=== PATIENT | male | born 1955 | race American Indian/Alaskan Native ===

== ENCOUNTER 2018-01-03 17:35 | Emergency (ER) | payer MEDICARE, MEDICAID ==
[2018-01-03] MEDS: GI Cocktail Oral Solution 30 ML PO ONE (18:01)
[2018-01-03 18:42] VITALS: BP 119/80
[2018-01-03 19:02] LABS: CHLORIDE,CL 107 mmol/L (98-107); SODIUM,NA 139 mmol/L (136-145)
--- NOTE | 2018-01-03 19:31 | EDM.PDOC ---
ED HPI GENERAL MEDICAL PROBLEM - General Chief Complaint: Chest Pain Time Seen by Provider: 01/03/18 19:21 Source of Information: Reports: Patient, EMS, Retirement Records History Limitations: Reports: No Limitations - History of Present Illness INITIAL COMMENTS - FREE TEXT/NARRATIVE: Pt. presents to ER with complaints of epigastric pain. Pt. states that the discomfort started earlier this afternoon. He states that he is not experiencing any substernal chest pain. No shortness of breath. No weakness. Denies any hemetemesis. No melena or hematochezia. Pt. has a longstanding history of alcoholism and alcohol induced encephalopathy. Pt. was upset that he wasn't able to go to [place] today due to his tendency to abscond from staff. Pt. stated that he didn't want to be seen in ER stating "I' m out and just want to take a cab to [place]." Pt. offered no complaints. He was unwilling to rate the severity or quality of the discomfort. 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, EKG, Nitroglycerin, See EMS Report Middle Chest Pain Score (Numeric/FACES): 6 - Related Data Allergies Allergy/AdvReac Type Severity Reaction Status Date / Time mustard Allergy Vomiting Verified 01/03/18 17:56 Home Meds: Home Meds NIFEdipine [Procardia XL] 1 tab PO DAILY 01/28/16 [History] metFORMIN [Glucophage] 1 tab PO DAILY 01/28/16 [History] Aspirin 81 mg PO DAILY 08/17/17 [History] Amoxicillin/Potassium Clav [Augmentin 875-125 Tablet] 1 each PO BID 08/18/17 [ History] Ascorbic Acid 500 mg PO ASDIRECTED 08/18/17 [History] Calcium Citrate/Vitamin D2 [Calcium with Vit D Tablet] 1 each PO ASDIRECTED [History] Cholecalciferol (Vitamin D3) [Vitamin D3] 2,000 unit PO ASDIRECTED 08/18/17 [ History] Clobetasol Propionate [Temovate] 15 gm TP ASDIRECTED 08/18/17 [History] FLUoxetine [PROzac] 10 mg PO ASDIRECTED 08/18/17 [History] Folic Acid 1 mg PO DAILY 08/18/17 [History] Gabapentin [Neurontin] 300 mg PO ASDIRECTED 08/18/17 [History] Insulin Aspart [NovoLOG] 0 unit SQ ASDIRECTED 08/18/17 [History] Insulin Detemir [Levemir] 1 unit SQ ASDIRECTED 08/18/17 [History] Lisinopril 10 mg PO DAILY 08/18/17 [History] Magnesium Oxide [Magnesium] 400 mg PO DAILY 08/18/17 [History] Multivitamin [Daily Multiple Vitamin] 1 each PO DAILY 08/18/17 [History] Pantoprazole [ProTONIX] 40 mg PO ACBREAKFAST 08/18/17 [History] Silver Sulfadiazine [Silvadene 1% Cream 20 GM] 20 gm TOP DAILY 08/18/17 [History ] Thiamine HCl 100 mg PO DAILY 08/18/17 [History] amLODIPine [Norvasc] 5 mg PO DAILY 08/18/17 [History] atorvaSTATin [Lipitor] 20 mg PO ASDIRECTED 08/18/17 [History] oxyCODONE HCl [Oxycodone HCl] 5 mg PO ASDIRECTED 08/18/17 [History] traMADol HCl [Tramadol HCl ER] 100 mg PO ASDIRECTED 08/18/17 [History] traZODone HCl [Trazodone HCl] 100 mg PO ASDIRECTED 08/18/17 [History] Past Medical History Cardiovascular History: Reports: High Cholesterol, Hypertension Gastrointestinal History: Reports: Cirrhosis, Gastritis, GERD Genitourinary History: Reports: BPH, Renal Disease Musculoskeletal History: Reports: Other (See Below) Other Musculoskeletal History: muscle weakness Neurological History: Reports: TIA, Other (See Below) Other Neuro History: TBI. personality disorder Psychiatric History: Reports: Addiction Endocrine/Metabolic History: Reports: Diabetes, Type II - Past Surgical History GI Surgical History: Reports: Other (See Below) Social & Family History - Tobacco Use Smoking Status *Q: Unknown Ever Smoked Second Hand Smoke Exposure: Yes - Alcohol Use Days Per Week of Alcohol Use: 7 Number of Drinks Per Day: 10 Total Drinks Per Week: 70 - Recreational Drug Use Recreational Drug Use: No ED ROS GENERAL - Review of Systems Review Of Systems: See Below Constitutional: Reports: No Symptoms HEENT: Reports: No Symptoms Respiratory: Reports: No Symptoms Cardiovascular: Reports: No Symptoms Endocrine: Reports: No Symptoms GI/Abdominal: Reports: Other (epigastric pain) : Reports: No Symptoms Musculoskeletal: Reports: No Symptoms Skin: Reports: No Symptoms Neurological: Reports: No Symptoms Psychiatric: Reports: No Symptoms Hematologic/Lymphatic: Reports: No Symptoms Immunologic: Reports: No Symptoms (epigsatric pain) ED EXAM, GENERAL - Physical Exam Exam: See Below General Appearance: Alert, WD/WN, No Apparent Distress Eye Exam: Bilateral Eye: EOMI, Normal Fundi, Normal Inspection, PERRL Respiratory/Chest: No Respiratory Distress, Lungs Clear, Normal Breath Sounds, No Accessory Muscle Use, Chest Non-Tender Cardiovascular: Normal Peripheral Pulses, Regular Rate, Rhythm, No Edema, No Gallop, No JVD, No Murmur, No Rub Peripheral Pulses: 4+: Radial (L), Radial (R) GI/Abdominal: Normal Bowel Sounds, Soft, Non-Tender, No Organomegaly, No Distention, No Abnormal Bruit, No Mass (Male) Exam: Deferred Rectal (Males) Exam: Deferred Back Exam: Normal Inspection, Full Range of Motion, NT Extremities: Normal Inspection, Normal Range of Motion, Non-Tender, Normal Capillary Refill, No Pedal Edema Course - Vital Signs Last Recorded V/S: Last Vital Signs Temp 36.7 C 01/03/18 17:35 Pulse 78 01/03/18 17:35 Resp 16 01/03/18 17:35 BP 119/80 01/03/18 17:35 Pulse Ox 95 01/03/18 17:35 - Orders/Labs/Meds Orders: Active Orders 24 hr Category Date Time Status Chest 1V Frontal [CR] Stat Exams 01/03/18 17:52 Taken Labs: Laboratory Tests 01/03/18 01/03/18 01/03/18 Range/Units 18:19 18:19 18:19 WBC 7.2 (4.0-10.0) x10^3/uL RBC 4.66 (4.5-6.0) x10^6/uL Hgb 13.2 L (14.0-18.0) g/dL Hct 37.9 L (40.0-52.0) % MCV 81.3 (78.0-93.0) fL MCH 28.3 (26.0-32.0) pg MCHC 34.8 (32.0-36.0) g/dL RDW Coeff of Kiara 14.2 (10.0-15.0) % Plt Count 177 (130-400) x10^3/uL Neut % (Auto) 67.6 (50.0-80.0) % Lymph % (Auto) 15.5 L (25.0-50.0) % [place] % (Auto) 11.9 H (2.0-11.0) % Eos % (Auto) 4.6 H (0.0-4.0) % Baso % (Auto) 0.4 (0.2-1.2) % PT 11.0 (9.8-11.8) SEC INR 1.0 L (2.0-3.5) Sodium 139 (136-145) mmol/L Potassium 4.0 (3.5-5.1) mmol/L Chloride 107 (98-107) mmol/L Carbon Dioxide 21 (21-32) mmol/L Anion Gap 15.0 BUN 22 H (7-18) mg/dL Creatinine 0.8 (0.70-1.30) mg/dL Est Cr Clr Drug Dosing 90.25 mL/min Estimated GFR (MDRD) > 60 Glucose 116 H (74-106) mg/dL Calcium 9.0 (8.5-10.1) mg/dL Corrected Calcium 9.24 (8.5-10.1) mg/dL Total Bilirubin 0.8 (0.2-1.0) mg/dL AST 35 (15-37) U/L ALT 48 (16-63) U/L Alkaline Phosphatase 109 (46-116) U/L Troponin I < 0.017 (<=0.056) ng/mL Total Protein 8.1 (6.4-8.2) g/dL Albumin 3.7 (3.4-5.0) g/dL Globulin 4.4 Albumin/Globulin Ratio 0.84 Meds: Medications Discontinued Medications Generic Name Dose Route Start Last Admin Trade Name Freq PRN Reason Stop Dose Admin Al Hydroxide/Mg Hydroxide 30 ml 01/03/18 17:52 01/03/18 18:01 Gi Cocktail PO 01/03/18 17:53 30 ml ONETIME ONE Administration Departure - Departure Time of Disposition: 19:25 Disposition: DC/Tfer to [facility] Condition: Good Clinical Impression: Gastroesophageal reflux disease - Discharge Information Instructions: Famotidine tablets or gelcaps Referrals: Venice José MD [Primary Care Provider] - Forms: ED Department Discharge Additional Instructions: Start pepcid 20mg twice daily. Stop Ibuprofen. Pt. to be seen on rounds in next 3-4 weeks. - My Orders Last 24 Hours: My Active Orders 01/03/18 17:52 Chest 1V Frontal [CR] Stat - Assessment/Plan Last 24 Hours: My Active Orders 01/03/18 17:52 Chest 1V Frontal [CR] Stat
== END 2018-01-03 19:25 ==
LOC: VM.ED 17:35
DX: K21.9 Gastro-esophageal reflux disease without esophagitis (principal); E78.00 Pure hypercholesterolemia, unspecified; I10 Essential (primary) hypertension; E11.9 Type 2 diabetes mellitus without complications; Z77.22 Contact with and (suspected) exposure to environmental tobacco smoke (acute) (chronic); Z91.018 Allergy to other foods; Z79.82 Long term (current) use of aspirin; Z79.899 Other long term (current) drug therapy; Z79.4 Long term (current) use of insulin
CPT/HCPCS: 36415; 71045; 80053; 84484; 85025; 85610; 99285; A9270-GY

== ENCOUNTER 2018-01-13 21:51 | Emergency (ER) | payer MEDICARE, MEDICAID ==
[2018-01-13 21:58] VITALS: BP 169/95
[2018-01-13] MEDS ORDERED: Ondansetron 4 MG Tab.DIS PO ONE (22:32)
[2018-01-13] MEDS ORDERED: Take Home: Ondansetron 4 MG Tab.DIS, 2 Tab Pack PO ONE (22:33)
--- NOTE | 2018-01-13 22:46 | EDM.PDOC ---
ED HPI GENERAL MEDICAL PROBLEM - General Chief Complaint: General Stated Complaint: nausea Time Seen by Provider: 01/13/18 21:57 Source of Information: Reports: Patient History Limitations: Reports: No Limitations - History of Present Illness INITIAL COMMENTS - FREE TEXT/NARRATIVE: Patient is staying at the [facility]. He reports that he fell early Monday morning at around 0330 and hit his head. He has been nauseated all day with one emesis. He denies any blurry vision, headaches, light or noise sensitivity. He has history of alcohol abuse and is 5 months sober. He has no other complaints this evening. Onset: Today, Gradual Associated Symptoms: Reports: Nausea/Vomiting Head Pain Score (Numeric/FACES): 6 - Related Data Allergies Allergy/AdvReac Type Severity Reaction Status Date / Time mustard Allergy Vomiting Verified 01/13/18 21:55 Home Meds: Home Meds metFORMIN [Glucophage] 1 tab PO DAILY 01/28/16 [History] Aspirin 81 mg PO DAILY 08/17/17 [History] Folic Acid 800 mcg PO DAILY 08/18/17 [History] Insulin Aspart [NovoLOG] 13 unit SQ TID 08/18/17 [History] Insulin Detemir [Levemir] 31 unit SQ ASDIRECTED 08/18/17 [History] Lisinopril 20 mg PO DAILY 08/18/17 [History] Multivitamin [Daily Multiple Vitamin] 1 each PO DAILY 08/18/17 [History] Pantoprazole [ProTONIX] 40 mg PO ACBREAKFAST 08/18/17 [History] Thiamine HCl 100 mg PO BID 08/18/17 [History] atorvaSTATin [Lipitor] 20 mg PO ASDIRECTED 08/18/17 [History] Acetaminophen [Pain & Fever] 650 mg PO Q8H PRN 01/03/18 [History] Hydrochlorothiazide 12.5 mg PO DAILY 01/03/18 [History] Ibuprofen 400 mg PO Q4H PRN 01/03/18 [History] Magnesium Chloride [Slow-Mag] 2 tab PO BID 01/03/18 [History] Nitroglycerin 0.4 mg SL ASDIRECTED PRN 01/03/18 [History] Vitamin B Complex 1 each PO BID 01/03/18 [History] cloNIDine [cloNIDine HCl] 0.1 mg PO ASDIRECTED PRN 01/03/18 [History] hydrOXYzine HCl [Atarax] 25 mg PO BID 01/03/18 [History] levETIRAcetam [Keppra] 500 mg PO BID 01/03/18 [History] Past Medical History Cardiovascular History: Reports: High Cholesterol, Hypertension Gastrointestinal History: Reports: Cirrhosis, Gastritis, GERD Genitourinary History: Reports: BPH, Renal Disease Musculoskeletal History: Reports: Other (See Below) Other Musculoskeletal History: muscle weakness Neurological History: Reports: TIA, Other (See Below) Other Neuro History: TBI. personality disorder Psychiatric History: Reports: Addiction Endocrine/Metabolic History: Reports: Diabetes, Type II - Past Surgical History GI Surgical History: Reports: Other (See Below) Social & Family History - Tobacco Use Smoking Status *Q: Never Smoker Second Hand Smoke Exposure: Yes - Alcohol Use Days Per Week of Alcohol Use: 7 Number of Drinks Per Day: 10 Total Drinks Per Week: 70 - Recreational Drug Use Recreational Drug Use: No Review of Systems - Review of Systems Review Of Systems: See Below Constitutional: Reports: No Symptoms Eyes: Reports: No Symptoms Ears: Reports: No Symptoms Nose: Reports: No Symptoms Mouth/Throat: Reports: No Symptoms Respiratory: Reports: No Symptoms Cardiovascular: Reports: No Symptoms GI/Abdominal: Reports: Nausea, Vomiting Genitourinary: Reports: No Symptoms Musculoskeletal: Reports: No Symptoms Skin: Reports: No Symptoms Neurological: Reports: No Symptoms Psychiatric: Reports: No Symptoms ED EXAM, GENERAL - Physical Exam Exam: See Below Exam Limited By: No Limitations General Appearance: Alert, WD/WN, No Apparent Distress Eye Exam: Bilateral Eye: EOMI, Normal Inspection, PERRL Ears: Normal External Exam, Normal Canal, Hearing Grossly Normal, Normal TMs Nose: Normal Inspection, Normal Mucosa, No Blood Throat/Mouth: Normal Inspection, Normal Lips, Normal Teeth, Normal Gums, Normal Oropharynx, Normal Voice, No Airway Compromise Head: Atraumatic, Normocephalic Neck: Normal Inspection, Supple, Non-Tender, Full Range of Motion Respiratory/Chest: No Respiratory Distress, Lungs Clear, Normal Breath Sounds, No Accessory Muscle Use, Chest Non-Tender Cardiovascular: Normal Peripheral Pulses, Regular Rate, Rhythm, No Edema, No Gallop, No JVD, No Murmur, No Rub GI/Abdominal: Normal Bowel Sounds, Soft, Non-Tender, No Organomegaly, No Distention, No Abnormal Bruit, No Mass Back Exam: Normal Inspection, Full Range of Motion, NT Extremities: Normal Inspection, Normal Range of Motion, Non-Tender, Normal Capillary Refill, No Pedal Edema Neurological: Alert, Oriented, CN II-XII Intact, Normal Cognition, Normal Gait, Normal Reflexes, No Motor/Sensory Deficits Psychiatric: Normal Affect, Normal Mood Skin Exam: Warm, Dry, Intact, Normal Color, No Rash Lymphatic: No Adenopathy Course - Vital Signs Last Recorded V/S: Last Vital Signs Temp 36.4 C 01/13/18 21:57 Pulse 71 01/13/18 21:57 Resp 18 01/13/18 21:57 BP 169/95 H 01/13/18 21:57 Pulse Ox 99 01/13/18 21:57 - Orders/Labs/Meds Orders: Active Orders 24 hr Category Date Time Status Ondansetron [Take Home: Ondansetron ODT 4 MG, 2 Tab Med 01/13/18 22:33 Once Pack] 1 packet PO ONETIME ONE Ondansetron [Zofran ODT] Med 01/13/18 22:32 Once 4 mg PO ONETIME ONE - Re-Assessments/Exams Free Text/Narrative Re-Assessment/Exam: 01/13/18 23:30 Physical exam reveals normal neurological function. Departure - Departure Time of Disposition: 22:36 Disposition: DC/Tfer to [facility] Condition: Good Clinical Impression: Post concussion syndrome - Discharge Information Instructions: Post-Concussion Syndrome, [id number] Additional Instructions: You have a normal neuro check which is why I did not do a CT of your head today. Take the zofran for nausea every 6 hours You may have some post concussion nausea intermittently. Take the zofran I sent home with you for this. Please call with any questions or concerns. - Problem List & Annotations (1) Post concussion syndrome SNOMED Code(s): 14898215 Code(s): F07.81 - POSTCONCUSSIONAL SYNDROME Status: Acute Priority: Low - Problem List Review Problem List Initiated/Reviewed/Updated: Yes - My Orders Last 24 Hours: My Active Orders 01/13/18 22:32 Ondansetron [Zofran ODT] 4 mg PO ONETIME ONE 01/13/18 22:33 Ondansetron [Take Home: Ondansetron ODT 4 MG, 2 Tab Pack] 1 packet PO ONETIME ONE - Assessment/Plan Last 24 Hours: My Active Orders 01/13/18 22:32 Ondansetron [Zofran ODT] 4 mg PO ONETIME ONE 01/13/18 22:33 Ondansetron [Take Home: Ondansetron ODT 4 MG, 2 Tab Pack] 1 packet PO ONETIME ONE Assessment:: nausea secondary to concussion Plan: You have a normal neuro check which is why I did not do a CT of your head today. Take the zofran for nausea every 6 hours You may have some post concussion nausea intermittently. Take the zofran I sent home with you for this. Please call with any questions or concerns.
== END 2018-01-13 22:50 ==
LOC: VM.ED 21:51
DX: F07.81 Postconcussional syndrome (principal); R11.0 Nausea; E78.00 Pure hypercholesterolemia, unspecified; I10 Essential (primary) hypertension; E11.9 Type 2 diabetes mellitus without complications; Z79.82 Long term (current) use of aspirin; Z79.4 Long term (current) use of insulin; Z79.899 Other long term (current) drug therapy
CPT/HCPCS: 99284; 99284-GF; A9270-GY

== ENCOUNTER 2018-01-19 13:51 | Emergency (ER) | payer MEDICARE, MEDICAID ==
--- NOTE | 2018-01-19 14:47 | EDM.PDOC ---
ED HPI GENERAL MEDICAL PROBLEM - General Chief Complaint: General Stated Complaint: er Time Seen by Provider: 01/19/18 14:37 Source of Information: Reports: Patient History Limitations: Reports: No Limitations - History of Present Illness INITIAL COMMENTS - FREE TEXT/NARRATIVE: Pt. presents to ER with [facility] staff. He has a history of alcoholism and is a resident at the [facility] special care unit. Staff states that the pt. went to an AA meeting and that he left the meeting and avoided his caregiver. He went to [facility] and drank a full bottle of listerine. He would not follow the commands of the [place] [facility] staff. half-way staff called 911 and police was able to calm the pt. half-way staff contacted his guardian, [facility] guardianship, and they wanted the pt. sent to the [facility] since they were unable to control him at the [facility]. Pt. offers no complaints. Denies any chest pain, shortness of breath, or weakness. She denies any head trauma. Denies suicidal or homicidal ideation. Onset: Today Onset Date: 01/19/18 Onset Time: 13:51 - Related Data Allergies Allergy/AdvReac Type Severity Reaction Status Date / Time mustard Allergy Vomiting Verified 01/19/18 14:21 Home Meds: Home Meds metFORMIN [Glucophage] 1 tab PO DAILY 01/28/16 [History] Aspirin 81 mg PO DAILY 08/17/17 [History] Folic Acid 800 mcg PO DAILY 08/18/17 [History] Insulin Aspart [NovoLOG] 13 unit SQ TID 08/18/17 [History] Insulin Detemir [Levemir] 31 unit SQ ASDIRECTED 08/18/17 [History] Lisinopril 20 mg PO DAILY 08/18/17 [History] Multivitamin [Daily Multiple Vitamin] 1 each PO DAILY 08/18/17 [History] Pantoprazole [ProTONIX] 40 mg PO ACBREAKFAST 08/18/17 [History] Thiamine HCl 100 mg PO BID 08/18/17 [History] atorvaSTATin [Lipitor] 20 mg PO ASDIRECTED 08/18/17 [History] Acetaminophen [Pain & Fever] 650 mg PO Q8H PRN 01/03/18 [History] Hydrochlorothiazide 12.5 mg PO DAILY 01/03/18 [History] Ibuprofen 400 mg PO Q4H PRN 01/03/18 [History] Magnesium Chloride [Slow-Mag] 2 tab PO BID 01/03/18 [History] Nitroglycerin 0.4 mg SL ASDIRECTED PRN 01/03/18 [History] Vitamin B Complex 1 each PO BID 01/03/18 [History] cloNIDine [cloNIDine HCl] 0.1 mg PO ASDIRECTED PRN 01/03/18 [History] hydrOXYzine HCl [Atarax] 25 mg PO BID 01/03/18 [History] levETIRAcetam [Keppra] 500 mg PO BID 01/03/18 [History] Past Medical History Cardiovascular History: Reports: High Cholesterol, Hypertension Gastrointestinal History: Reports: Cirrhosis, Gastritis, GERD Genitourinary History: Reports: BPH, Renal Disease Musculoskeletal History: Reports: Other (See Below) Other Musculoskeletal History: muscle weakness Neurological History: Reports: TIA, Other (See Below) Other Neuro History: TBI. personality disorder Psychiatric History: Reports: Addiction Endocrine/Metabolic History: Reports: Diabetes, Type II - Past Surgical History GI Surgical History: Reports: Other (See Below) Social & Family History - Tobacco Use Smoking Status *Q: Never Smoker Second Hand Smoke Exposure: Yes - Alcohol Use Days Per Week of Alcohol Use: 7 Number of Drinks Per Day: 10 Total Drinks Per Week: 70 - Recreational Drug Use Recreational Drug Use: No ED ROS GENERAL - Review of Systems Review Of Systems: See Below Constitutional: Reports: No Symptoms HEENT: Reports: No Symptoms Respiratory: Reports: No Symptoms Cardiovascular: Reports: No Symptoms Endocrine: Reports: No Symptoms GI/Abdominal: Reports: No Symptoms : Reports: No Symptoms Musculoskeletal: Reports: No Symptoms Skin: Reports: No Symptoms Neurological: Reports: No Symptoms Psychiatric: Reports: No Symptoms Hematologic/Lymphatic: Reports: No Symptoms Immunologic: Reports: No Symptoms ED EXAM, GENERAL - Physical Exam Exam: See Below Exam Limited By: No Limitations General Appearance: Alert, WD/WN, No Apparent Distress Ears: Normal External Exam, Normal Canal, Hearing Grossly Normal, Normal TMs Ear Exam: Bilateral Ear: Auricle Normal, Canal Normal, TM normal Nose: Normal Inspection, Normal Mucosa, No Blood Throat/Mouth: Normal Inspection, Normal Lips, Normal Teeth, Normal Gums, Normal Oropharynx, Normal Voice, No Airway Compromise Head: Atraumatic, Normocephalic Neck: Normal Inspection, Supple, Non-Tender, Full Range of Motion Respiratory/Chest: No Respiratory Distress, Lungs Clear, Normal Breath Sounds, No Accessory Muscle Use, Chest Non-Tender Cardiovascular: Normal Peripheral Pulses, Regular Rate, Rhythm, No Edema, No Gallop, No JVD, No Murmur, No Rub GI/Abdominal: Normal Bowel Sounds, Soft, Non-Tender, No Organomegaly, No Distention, No Abnormal Bruit, No Mass (Male) Exam: No Hernia, Normal Inspection, Normal Prostate, Circumcised Rectal (Males) Exam: Normal Exam, Normal Rectal Tone, Prostate Normal Back Exam: Normal Inspection, Full Range of Motion, NT Extremities: Normal Inspection, Normal Range of Motion, Non-Tender, Normal Capillary Refill, No Pedal Edema Neurological: Alert, Oriented, CN II-XII Intact, Normal Cognition, Normal Gait, Normal Reflexes, No Motor/Sensory Deficits Psychiatric: Normal Affect, Normal Mood Skin Exam: Warm, Dry, Intact, Normal Color, No Rash Lymphatic: No Adenopathy Departure - Departure Time of Disposition: 14:40 Disposition: DC/Tfer to [facility] Hosp[facility]Unit [facility] Clinical Impression: Alcoholism, Alcohol intoxication - Discharge Information Forms: ED Department Discharge - Assessment/Plan Assessment:: alcoholism Plan: chucky Macario at [facility], contacted the ER regarding the pt. preadmission labs including toxicology, chemisty, and hematology was ordered but pt. refused to consent to blood draw. We were subsequently informed to send pt. to [facility] via EMS directly if he isn't consenting. [facility] transported pt. Transport order was filled out.
[2018-01-19 15:22] VITALS: BP 135/96
== END 2018-01-19 14:40 ==
LOC: VM.ED 13:51
DX: F10.229 Alcohol dependence with intoxication, unspecified (principal); E78.00 Pure hypercholesterolemia, unspecified; I10 Essential (primary) hypertension; E11.9 Type 2 diabetes mellitus without complications; Z91.048 Other nonmedicinal substance allergy status; Z79.82 Long term (current) use of aspirin; Z79.4 Long term (current) use of insulin; Z79.899 Other long term (current) drug therapy
CPT/HCPCS: 99284